=== PATIENT | male | born 1955 | race Caucasian/White ===

== ENCOUNTER 2021-03-30 15:26 | Outpatient (RCR) | payer OTHER | END 2021-03-31 | disposition home or self-care (01) | PROVIDERS: ATTEND Physician Assistant | DX: S46.011D Strain of muscle(s) and tendon(s) of the rotator cuff of right shoulder, subsequent encounter (principal); X58.XXXD Exposure to other specified factors, subsequent encounter ==

== ENCOUNTER 2021-04-26 11:27 | Outpatient (RCR) | payer OTHER | END 2021-05-01 | disposition home or self-care (01) | PROVIDERS: ATTEND Physician Assistant | DX: S46.011D Strain of muscle(s) and tendon(s) of the rotator cuff of right shoulder, subsequent encounter (principal); X58.XXXD Exposure to other specified factors, subsequent encounter; Z98.1 Arthrodesis status ==

== ENCOUNTER 2021-05-25 11:26 | Outpatient (RCR) | payer OTHER | END 2021-05-29 | disposition home or self-care (01) | PROVIDERS: ATTEND Physician Assistant | DX: S46.011D Strain of muscle(s) and tendon(s) of the rotator cuff of right shoulder, subsequent encounter (principal); X58.XXXD Exposure to other specified factors, subsequent encounter ==

== ENCOUNTER 2021-06-26 09:13 | Outpatient (RCR) | payer OTHER | END 2021-06-29 | disposition home or self-care (01) | PROVIDERS: ATTEND Physician Assistant | DX: S46.011D Strain of muscle(s) and tendon(s) of the rotator cuff of right shoulder, subsequent encounter (principal); X58.XXXD Exposure to other specified factors, subsequent encounter ==